=== PATIENT | female | born 1970 | race Caucasian/White ===

== ENCOUNTER 2017-04-07 06:46 | Day surgery (SDC) | payer BC, OTHER ==
[2017-04-07] MEDS ORDERED: fentaNYL 100 MCG/2 ML SDV IV ONE (06:47)
[2017-04-07] MEDS ORDERED: Ondansetron 4 MG/2 ML SDV IV ONE (06:47)
[2017-04-07] MEDS ORDERED: Neostigmine Methylsulfate 10 MG/10 ML MDV IV ONE (06:47)
[2017-04-07] MEDS ORDERED: Glycopyrrolate 0.2 MG/ML 2 ML SDV IV ONE (06:47)
[2017-04-07] MEDS ORDERED: Propofol 200 MG/20 ML SDV IV ONE (06:47)
[2017-04-07] MEDS ORDERED: Rocuronium 50 MG/5 ML Vial IV ONE (06:47)
[2017-04-07] MEDS ORDERED: Midazolam 1 MG/ML 2 ML SDV IV ONE (06:47)
[2017-04-07] MEDS ORDERED: Dexamethasone 4 MG/ML SDV IV ONE (06:47)
[2017-04-07] MEDS ORDERED: Lactated Ringers 1,000 ML IV ONE (06:47)
[2017-04-07] MEDS ORDERED: ceFAZolin 1 GM in Premix Bag 1 BAG IV ONE (07:00)
[2017-04-07] MEDS ORDERED: Lactated Ringers 1,000 ML IV SCH (07:00)
[2017-04-07] MEDS ORDERED: Midazolam 1 MG/ML 2 ML SDV ONE (07:38)
[2017-04-07] MEDS ORDERED: fentaNYL 100 MCG/2 ML SDV ONE (07:39)
[2017-04-07] MEDS ORDERED: Ondansetron 4 MG/2 ML SDV ONE (07:39)
[2017-04-07] MEDS ORDERED: Atropine 0.4 MG/ML SDV ONE (07:40)
[2017-04-07] MEDS ORDERED: Propofol 200 MG/20 ML SDV ONE (07:40)
[2017-04-07] MEDS ORDERED: Neostigmine Methylsulfate 10 MG/10 ML MDV ONE (07:40)
[2017-04-07] MEDS ORDERED: Glycopyrrolate 0.2 MG/ML 2 ML SDV ONE (07:40)
[2017-04-07] MEDS ORDERED: Dexamethasone 4 MG/ML SDV ONE (07:40)
[2017-04-07] MEDS ORDERED: Succinylcholine 200 MG/10 ML MDV ONE (07:41)
[2017-04-07] MEDS ORDERED: Rocuronium 50 MG/5 ML Vial ONE (07:41)
[2017-04-07] MEDS ORDERED: Lidocaine 2% Jelly 5 ML Tube ONE (07:42)
--- NOTE | 2017-04-07 08:02 | PCM.SN ---
- Free Text/Narrative Note: preop patients history and physical reviewed along with allergies and medications breast reduction T and A in past no history of complications with past anesthesia heart regular rhythm lungs clear npo 8 hrs mallampati 2 history of obesity wheezing with upper respiratory infection asa 1 plan ga this along with risks goals alternatives explained to patient and accepted
[2017-04-07] MEDS ORDERED: HYDROmorphone 1 MG/ML Syringe IVPUSH ONE ×2 (09:35→10:00)
--- NOTE | 2017-04-07 10:03 | OR ---
DATE: 04/07/2017 PREOPERATIVE DIAGNOSES: Chronic cholecystitis with cholelithiasis. POSTOPERATIVE DIAGNOSES: Chronic cholecystitis with cholelithiasis. PROCEDURE: Laparoscopic cholecystectomy. ANESTHESIA: General. SPECIMEN: Gallbladder. ESTIMATED BLOOD LOSS: Minimum. OPERATIVE FINDINGS: Normal intraabdominal exam. The patient has 4 relatively large gallstones. INDICATION FOR PROCEDURE: This 47-year-old female, has a consistent right upper quadrant pain and known large stones on ultrasound. PROCEDURE IN DETAIL: After adequate preparation, trocars were placed in the abdomen under direct vision. Examination the abdomen was normal. There was no evidence of bleeding or organ injury on trocar insertion. There were no adhesions. The intestine appeared to be normal. Liver had normal consistency so was the stomach and spleen. The gallbladder was thin, non-scarred. The gallbladder was grasped and elevated over the liver. The cystic triangle structures were dissected free, and the duct and artery separately, triply clipped and divided. The gallbladder was taken off the liver bed using cautery and blunt dissection. No spillage of bile or stones occurred. The gallbladder was placed within the retrieval bag and brought out through the epigastric trocar site. The gallbladder bed were irrigated and rechecked for hemostasis which was adequate. The trocars were removed. Abdomen desufflated and the skin closed with Vicryl. [facility] /[id number]
--- NOTE | 2017-04-07 11:30 | PCM.SN ---
- Free Text/Narrative Note: 04/07/17 1130 postop patient recovered well from ga pain well controlled at this time doing well no apparent complications with anesthesia
[2017-04-07] MEDS ORDERED: Acetaminophen/oxyCODONE 325-5 MG Tab PO ONE (11:45)
[2017-04-07] MEDS: Ondansetron 4 MG/2 ML SDV IV SCH ×3 (11:54→23:46)
[2017-04-07] MEDS ORDERED: Morphine 4 MG/ML Syringe IVPUSH PRN (12:03)
--- NOTE | 2017-04-07 12:21 | PCM.SN ---
- Free Text/Narrative Note: Will admit patient for observation overnight secondary to nausea and pain control. Unable to take PO Percocet secondary to nausea despite giving IV Zofran. Pain rated at 5-6 even after IV Dilaudid. Poor PO intake.
[2017-04-07] MEDS: Acetaminophen/oxyCODONE 325-5 MG Tab PO PRN ×3 (12:35→23:07)
[2017-04-07] MEDS: Sodium Chloride 0.9% 10 ML Syringe FLUSH PRN ×5 (12:40→23:59)
[2017-04-08] MEDS: Ondansetron 4 MG/2 ML SDV IV SCH (07:10)
--- NOTE | 2017-04-08 08:25 | PCM.SN ---
- Free Text/Narrative Note: Patient doing much better this AM. Pain well controlled and PO good. Wounds OK. Discussed discharge instructions and things to watch for. Will FU in the surgery clinic next month if she has any concerns. Off work for the next [address] days[address] activity[address] Mendez
[2017-04-08 08:29] VITALS: BP 116/73
== END 2017-04-08 09:45 | disposition other institution (70) ==
LOC: DL.SDS 06:46 → EDSTATUS 08:00 → DL.SDS 04-08 09:45
PROVIDERS: ATTEND Surgery
DX: K80.10 Calculus of gallbladder with chronic cholecystitis without obstruction (principal); Z88.0 Allergy status to penicillin; Z79.899 Other long term (current) drug therapy
CPT/HCPCS: 47562; A9270; J0690; J1100; J1170; J2250; J2405; J2704; J2710; J3010; J7050; J7120; J3490